=== PATIENT | female | born 1955 | race American Indian/Alaskan Native ===

== ENCOUNTER 2017-05-22 09:36 | Day surgery (SDC) | payer BC ==
[2017-05-21 09:13] VITALS: BMI 30.2
[2017-05-22] MEDS ORDERED: Lidocaine 2% Inj (20ml) ONE (10:05)
[2017-05-22] MEDS ORDERED: Propofol 10 mg/ml Inj (20 ML) ONE (10:05)
[2017-05-22] MEDS ORDERED: Sodium Chloride 0.9% 1,000 ML IV SCH (10:45)
[2017-05-22 12:09] VITALS: BP 111/57; PULSE 63; RESP 16; TEMP 98.3; O2SAT 100
== END 2017-05-22 12:17 | disposition home or self-care (01) ==
LOC: ENDO 09:36
PROVIDERS: ATTEND Internal Medicine Gastroenterology
DX: Z12.11 Encounter for screening for malignant neoplasm of colon (principal); K63.5 Polyp of colon; K62.1 Rectal polyp; K64.1 Second degree hemorrhoids; K29.50 Unspecified chronic gastritis without bleeding; E11.9 Type 2 diabetes mellitus without complications; I10 Essential (primary) hypertension
CPT/HCPCS: 43239; 45380; 82948; 88305; 88342; J2704; J7040